=== PATIENT | male | born 1965 | race Two or more races ===

== ENCOUNTER 2016-10-23 22:09 | Emergency (ER) | payer OTHER ==
[2016-10-23] MEDS ORDERED: ERYTHROMYCIN OPHTH OINT 0.5% 1 APPLIC/TUBE ONE (23:56)
== END 2016-10-24 00:26 | disposition home or self-care (01) ==
LOC: ED 22:09
DX: H57.12 Ocular pain, left eye (principal); H10.32 Unspecified acute conjunctivitis, left eye; S05.02XA Injury of conjunctiva and corneal abrasion without foreign body, left eye, initial encounter; X58.XXXA Exposure to other specified factors, initial encounter; Y92.9 Unspecified place or not applicable
CPT/HCPCS: 99282; 99283; A9270